=== PATIENT | male | born 1995 | race Caucasian/White ===

== ENCOUNTER 2017-05-21 18:01 | Emergency (ER) | payer BC ==
[2017-05-21] MEDS ORDERED: methylPREDNISolone 125 MG* 2 ML VIAL IV ONE (18:16)
[2017-05-21] MEDS ORDERED: Famotidine IV* 10 MG/ML 2 ML (20 mg) IV SLOW PU ONE (18:16)
[2017-05-21] MEDS ORDERED: NS 0.9% 1000 ML* 1,000 ML IV ONE (18:16)
[2017-05-21] MEDS ORDERED: diPHENhydraMINE IV* 50 MG/ML 1 ml VIAL (BENADRYL) IV ONE (18:17)
--- NOTE | 2017-05-21 18:19 | ED ---
Allergic Reaction/Systemic - HPI Summary HPI Summary: Pt here w/ acute onset allergic reaction to unknown source. He was playing basketball when he all of a sudden began sneezing uncontrollably. Told his friends he was going to go home as he felt that was the better choice than continuing to play. He has diffuse red rash and itching as well as nasopharyngeal congestion w/ rhinorrhea. Denies trouble breathing or swallowing and does not feel tongue or lips are swollen. He does not have any previous history of gross allergic reaction. He does admit to pollen allergies and has had poison bridget on/off "all summer". Report this typically goes away within the week by simply using calamine lotion and remains isolated to his arms only. He does not have asthma nor does he take an anti-histamine daily. No new foods, meds, supplements, animal exposures, plants, cosmetics, detergents, etc. He admits to drinking ETOH somewhat heavily all week. Smokes ciagrettes when he drinks only. Has smoked marijuana daily. And had a "sip" of "Deonna drink" last night. - History of Current Complaint Hx Obtained From: Patient - Allergies/Home Medications Allergies/Adverse Reactions: Allergies Allergy/AdvReac Type Severity Reaction Status Date / Time No Known Allergies Allergy Verified 05/25/15 13:07 PMH/Surg Hx/FS Hx/Imm Hx Previously Healthy: Yes Endocrine/Hematology History: Denies: Hx Diabetes, Autoimmune Disease Cardiovascular History: Denies: Hx Hypertension Respiratory History: Reports: Hx Seasonal Allergies - pollen Denies: Hx Asthma History: Denies: Hx Renal Disease - Immunization History Date of Tetanus Vaccine: unknown - Family History Known Family History: Negative: Cardiac Disease, Hypertension, Diabetes, Blood Disorder - Social History Occupation: Student Lives: With Family - roommates Alcohol Use: Weekly Substance Use Type: Reports: Marijuana - daily, Other - aderall Substance Use Comment - Amount & Last Used: unknown Hx Tobacco Use: Yes - smokes when he drinks ETOH only, not daily Review of Systems Constitutional: Negative Negative: Fever, Chills Positive: Drainage - watery, itchy Positive: Sore Throat, Nasal Discharge Cardiovascular: Negative Negative: Palpitations, Chest Pain Respiratory: Negative Negative: Shortness Of Breath, Cough Gastrointestinal: Negative Negative: Abdominal Pain, Vomiting, Diarrhea, Nausea Positive: no symptoms reported Positive: Rash - see HPI Neurological: Negative Psychological: Normal All Other Systems Reviewed And Are Negative: Yes Physical Exam Triage Information Reviewed: Yes Vital Signs Reviewed: Yes Appearance: Positive: Well-Nourished - erythematous head, neck torso and extremities; appears edematous in general Skin: Positive: Warm, Dry Eyes: Positive: Conjunctiva Inflammed, Discharge - watery, Other: - somewhat edematous palpebrae - can still see sclera ENT: Positive: Hearing grossly normal, Pharynx normal, Nasal congestion, Nasal drainage - clear rhinorrhea. Negative: Muffled/hoarse voice Neck: Positive: Supple, Nontender Respiratory/Lung Sounds: Positive: Clear to Auscultation, Breath Sounds Present. Negative: Rales, Rhonchi, Stridor, Wheezes, Unable to speak in full sentences, Fatigue Cardiovascular: Positive: Normal, RRR, Pulses are Symmetrical in both Upper and Lower Extremities, S1, S2 Abdomen Description: Positive: Nontender, Soft Bowel Sounds: Positive: Present Musculoskeletal: Positive: Normal, Strength/ROM Intact Neurological: Positive: Normal, Sensory/Motor Intact, Alert, Oriented to Person Place, Time, CN Intact II-III Psychiatric: Positive: Normal Re-Evaluation - Re-Evaluation First Eval Change: Improved - throat sx, itching, redness and swelling improved with IV meds - no trouble breathing or swallowing. Feels better. Allergic Reaction Course/Dx - Course Course Of Treatment: Pt presents w/ allergic reaction of unknown origin. Although the cause was not identified today, he had great improvement and complete resolution of sx over the course of 2 hours w/ IVS, benadryl, solumedrol and pepcid. Advised rest, fluids and close f/u w/ IC as well as referral to animal pathologist. Will send epi pen to pharmacy for emergency use - educated pt who agrees w/ plan. - Diagnoses Provider Diagnoses: Allergic reaction Discharge - Discharge Plan Condition: Stable Disposition: HOME Prescriptions: Epinephrine [Epipen 2-Trav] 0.3 mg IM ONCE PRN #1 inj PRN Reason: Allergy Symptoms Methylprednisolone [Medrol Dosepak 4 MG*] 4 mg PO .SEE TRAV INSTRUCTION #1 trav Patient Education Materials: General Allergic Reaction (ED) [facility] - Additional Instructions: The cause of your allergic reaction was not identified tonight however it is advised that you continue a steroid (dose trav sent to [facility] - complete course) . If you have breakthrough icthing, rash, you may take benadryl 50mg every 6hours. Avoid heat. Stay hydrated. Follow-up with [facility] Wednesday and consult with animal pathologist for further testing. *If you develop anaphylactic symptoms (trouble breathing or swallowing with nausea, vomiting, ab pain), inject epipen into thigh and go to the nearest ED.
[2017-05-21 20:59] VITALS: BP 119/43
== END 2017-05-21 21:10 | disposition home or self-care (01) ==
LOC: ED 18:01
DX: T78.40XA Allergy, unspecified, initial encounter (principal); X58.XXXA Exposure to other specified factors, initial encounter; J02.9 Acute pharyngitis, unspecified; R21 Rash and other nonspecific skin eruption
CPT/HCPCS: 96374; 96375; 99284; J1200; J2930